=== PATIENT | male | born 1995 | race Two or more races ===

== ENCOUNTER 2024-05-04 08:43 | Emergency (ER) | payer OTHER ==
[~2024-05-04] VITALS: Ht 180.3 cm; Wt 75.0 kg
[2024-05-04 10:40] VITALS: BP 134/86; PULSE 74; RESP 16; TEMP 97.8; O2SAT 99
[2024-05-04] MEDS: LIDOCAINE 1% HCL (LOCAL ANESTH.) INJ 20ML MDV ID ONE (11:11)
[2024-05-04] MEDS: NEOMYCIN-BACITRACIN-POLYM UNITDOSE PKG TOP OINT TOP ONE (11:13)
== END 2024-05-04 11:23 | disposition home or self-care (01) ==
LOC: ER 08:43
DX: S01.112A Laceration without foreign body of left eyelid and periocular area, initial encounter (principal); W22.8XXA Striking against or struck by other objects, initial encounter; Y93.89 Activity, other specified; Y92.89 Other specified places as the place of occurrence of the external cause; Y99.0 Civilian activity done for income or pay
CPT/HCPCS: 12013; J2001